=== PATIENT | female | born 1995 | race African-American/Black ===

== ENCOUNTER 2022-09-29 11:39 | Observation (INO) | payer MEDICAID ==
[~2022-09-29] VITALS: Ht 160 cm; Wt 87.5 kg
[2022-09-29] MEDS ORDERED: PREN1TAB78 MT (13:34)
== END 2022-09-29 17:15 | disposition home or self-care (01) ==
LOC: 8 EST LDRP 11:39
PROVIDERS: ADMIT Obstetrics & Gynecology; ATTEND Obstetrics & Gynecology
DX: O99.891 Other specified diseases and conditions complicating pregnancy (principal); M54.9 Dorsalgia, unspecified; R10.9 Unspecified abdominal pain; O62.9 Abnormality of forces of labor, unspecified; Z3A.38 38 weeks gestation of pregnancy
CPT/HCPCS: 59025; 76805; 76818; G0378; 99281; G0379

== ENCOUNTER 2022-10-04 09:47 | Inpatient (IN) | payer MEDICAID ==
[~2022-10-04] VITALS: Ht 160 cm; Wt 88.5 kg
[~2022-10-04 09:47] MED LIST: PREN1TAB78 MT
[2022-10-04] MEDS ORDERED: CARBOPROST TROMETHAMINE 250 MCG/ML AMPUL IM PRN (12:30)
[2022-10-04] MEDS ORDERED: OXYTOCIN 30 UNITS/500ML NS PMX 500 ML IV SCH (12:30)
[2022-10-04] MEDS ORDERED: BUTORPHANOL TARTRATE 2 MG/ML VIAL IV PRN (12:30)
[2022-10-04] MEDS ORDERED: METHYLERGONOVINE MALEATE 0.2 MG/ML IM PRN (12:30)
[2022-10-04] MEDS ORDERED: RHO(D) IMMUNE GLOBULIN 300 MCG/SYR IM NR (12:30)
[2022-10-04] MEDS ORDERED: LIDOCAINE HCL 1% 20ML VIAL (Pyxis) INJ INFIL SCH (12:30)
[2022-10-04] MEDS ORDERED: NALOXONE HCL 0.4 MG/ML 1ML VIAL IM PRN (12:30)
[2022-10-04] MEDS: LACTATED RINGERS 1,000 ML IV SCH ×4 (15:03→21:18)
[2022-10-04 15:10] LABS: CLARITY URINE CLEAR (CLEAR); COLOR URINE DARK YELLOW (YELLOW); KETONES URINE NEGATIVE (NEGATIVE); LEUKOCYTE ESTERASE URINE 2+ (NEGATIVE); NITRITE URINE NEGATIVE (NEGATIVE); OCCULT BLOOD URINE NEGATIVE (NEGATIVE); PROTEIN URINE TRACE (NEGATIVE); SPECIFIC GRAVITY URINE 1.021 (1.005-1.030)
[2022-10-04 15:30] LABS: *AMPHETAMINES SCREEN URINE NEGATIVE (NEGATIVE); *BARBITURATES SCREEN URINE NEGATIVE (NEGATIVE); *BENZODIAZEPINES SCREEN URINE NEGATIVE (NEGATIVE); *COCAINE SCREEN URINE NEGATIVE (NEGATIVE); CANNABINOID URINE SCREEN NEGATIVE (NEGATIVE); METHADONE URINE SCREEN NEGATIVE (NEGATIVE); OPIATES URINE SCREEN NEGATIVE (NEGATIVE); PHENCYCLIDINE URINE SCREEN NEGATIVE (NEGATIVE)
[2022-10-04 16:00] LABS: BASOPHILS % 0.2 % (0.0-2.0); EOSINOPHILS % 0.4 % (0.0-5.0); HEMATOCRIT. 27.1 % (36.0-48.0); HEMOGLOBIN. 8.4 g/dL (12.0-16.0); LYMPHOCYTES % 20.2 % (20.0-50.0); MEAN CORPUSCULAR HEMOGLOBIN 20.2 pg (28.0-32.0); MEAN CORPUSCULAR VOLUME 65.2 fL (81.0-99.0); MEAN PLATELET VOLUME 8.5 fl (7.4-10.4); MONOCYTES % 5.1 % (2.0-8.0); NEUTROPHILS % 74.1 % (40.0-76.0); PLATELET 398 x1000/uL (130-400); RED BLOOD CELL COUNT 4.15 mill/uL (4.2-5.4); RED CELL DISTRIBUTION WIDTH 19.6 % (11.6-14.6)
[2022-10-04 16:12] LABS: INR 0.9; PARTIAL THROMBOPLASTIN TIME 29.6 sec (23.4-31.0); PROTHROMBIN TIME 9.9 sec (9.6-11.0)
[2022-10-04 17:29] LABS: PLATELET ESTIMATE NORMAL
[2022-10-04 18:28] LABS: HEPATITIS B SURFACE ANTIGEN NEGATIVE
[2022-10-04] MEDS ORDERED: ROPIVACAINE HCL/PF EPIDURAL 200 ML EPI ONE (20:28)
[2022-10-04] MEDS ORDERED: ROPIVACAINE HCL/PF EPIDURAL 200 ML EPI SCH (20:30)
[2022-10-05] MEDS ORDERED: ONDANSETRON HCL 4MG/2ML INJ IV PRN (00:30)
[2022-10-05] MEDS: ONDANSETRON HCL 4MG/2ML INJ IV PRN ×2 (00:35→07:25)
[2022-10-05] MEDS ORDERED: HEMORRHOIDAL SUPP PR PRN (06:30)
[2022-10-05] MEDS ORDERED: LANOLIN OINT 7GM TUBE TOP PRN (06:30)
[2022-10-05] MEDS ORDERED: GLYCERIN/WITCH HAZEL LEAF MEDICATED PAD TOP PRN (06:30)
[2022-10-05] MEDS ORDERED: DIPHENHYDRAMINE 25MG CAPSULE PO PRN (06:30)
[2022-10-05] MEDS ORDERED: RHO(D) IMMUNE GLOBULIN 300 MCG/SYR IM PRN (06:30)
[2022-10-05] MEDS ORDERED: IBUPROFEN 400MG TABLET PO PRN (06:30)
[2022-10-05] MEDS ORDERED: BENZOCAINE/LANOLIN/ALOE VERA SPRAY TOP PRN (06:30)
[2022-10-05] MEDS ORDERED: METHYLERGONOVINE MALEATE 0.2 MG/ML IM PRN (06:30)
[2022-10-05] MEDS ORDERED: OXYTOCIN 30 UNITS/500ML NS PMX 500 ML IV SCH (06:30)
[2022-10-05] MEDS ORDERED: BISACODYL 10MG SUPP PR PRN (06:30)
[2022-10-05] MEDS ORDERED: PRENATAL VIT/FE FUMARATE/FA TABLET PO SCH (09:00)
[2022-10-05] MEDS: IBUPROFEN 800MG TABLET PO PRN ×2 (09:10→20:13)
[2022-10-05 09:30] VITALS: BP 113/70
[2022-10-05] MEDS ORDERED: NALOXONE HCL 0.4MG/ML VIAL IV PRN (10:00)
[2022-10-05] MEDS: ACETAMINOPHEN WITH CODEINE 300/30MG TABLET PO PRN ×2 (10:50→18:32)
[2022-10-05 16:00] VITALS: BP 115/72
[2022-10-05 19:30] VITALS: BP 113/62
[2022-10-05] MEDS: SIMETHICONE 80MG TABLET CHEW PO SCH (20:11)
[2022-10-06] MEDS: IBUPROFEN 800MG TABLET PO PRN ×3 (03:44→18:32)
[2022-10-06 04:00] VITALS: BP 104/57
[2022-10-06 06:30] LABS: BASOPHILS % 0.3 % (0.0-2.0); EOSINOPHILS % 0.9 % (0.0-5.0); LYMPHOCYTES % 18.6 % (20.0-50.0); MEAN CORPUSCULAR HEMOGLOBIN 19.8 pg (28.0-32.0); MEAN CORPUSCULAR VOLUME 64.7 fL (81.0-99.0); MEAN PLATELET VOLUME 8.2 fl (7.4-10.4); MONOCYTES % 8.2 % (2.0-8.0); PLATELET 307 x1000/uL (130-400); RED BLOOD CELL COUNT 2.66 mill/uL (4.2-5.4); RED CELL DISTRIBUTION WIDTH 19.2 % (11.6-14.6)
[2022-10-06 08:00] VITALS: BP 101/51
[2022-10-06 08:15] LABS: HEMATOCRIT. 17.2 % (36.0-48.0); HEMOGLOBIN. 5.2 g/dL (12.0-16.0)
[2022-10-06] MEDS: FERROUS SULFATE 325MG TABLET PO SCH ×3 (08:36→17:56)
[2022-10-06] MEDS: SIMETHICONE 80MG TABLET CHEW PO SCH ×4 (08:36→20:56)
[2022-10-06 16:00] VITALS: BP 117/62
[2022-10-06 19:30] VITALS: BP 107/61
[2022-10-07 04:00] VITALS: BP 94/54
[2022-10-07] MEDS ORDERED: IBUP-2030 PO (05:57)
[2022-10-07] MEDS ORDERED: FERR210T MT (05:57)
[2022-10-07] MEDS: IBUPROFEN 800MG TABLET PO PRN (07:19)
[2022-10-07 08:00] VITALS: BP 111/62
[2022-10-07 08:15] VITALS: BP 94/54
[2022-10-07] MEDS: ACETAMINOPHEN WITH CODEINE 300/30MG TABLET PO PRN (08:15)
[2022-10-07 09:26] LABS: BASOPHILS % 0.4 % (0.0-2.0); EOSINOPHILS % 1.1 % (0.0-5.0); MEAN CORPUSCULAR HEMOGLOBIN 19.9 pg (28.0-32.0); MEAN CORPUSCULAR VOLUME 66.2 fL (81.0-99.0); MEAN PLATELET VOLUME 7.7 fl (7.4-10.4); NEUTROPHILS % 71.5 % (40.0-76.0); PLATELET 392 x1000/uL (130-400); RED BLOOD CELL COUNT 3.08 mill/uL (4.2-5.4); RED CELL DISTRIBUTION WIDTH 19.7 % (11.6-14.6)
[2022-10-07 09:38] LABS: HEMATOCRIT. 20.4 % (36.0-48.0); HEMOGLOBIN. 6.1 g/dL (12.0-16.0)
== END 2022-10-07 11:00 | disposition home or self-care (01) | DRG 560 ==
LOC: 8 EST LDRP 09:47 → OBSVTOIN 09:47 → 8EST 10-05 09:44
PROVIDERS: ADMIT Obstetrics & Gynecology; ATTEND Obstetrics & Gynecology
PROC: 10E0XZZ Delivery of Products of Conception, External Approach (ICD-10-PCS; principal; 2022-10-05)
PROC: 0HQ9XZZ Repair Perineum Skin, External Approach (ICD-10-PCS; 2022-10-05)
PROC: 3E0R3BZ Introduction of Anesthetic Agent into Spinal Canal, Percutaneous Approach (ICD-10-PCS; 2022-10-05)
PROC: 00HU33Z Insertion of Infusion Device into Spinal Canal, Percutaneous Approach (ICD-10-PCS; 2022-10-05)
DX: O69.81X0 Labor and delivery complicated by cord around neck, without compression, not applicable or unspecified (principal); Z37.0 Single live birth; O72.1 Other immediate postpartum hemorrhage; O99.02 Anemia complicating childbirth; O70.0 First degree perineal laceration during delivery; Z3A.39 39 weeks gestation of pregnancy; Z20.822 Contact with and (suspected) exposure to COVID-19
CPT/HCPCS: 36415; 80305; 81003; 85025; 86592; 86703; 86762; 86850; 86900; 87340; 87426; 99281; G0378; J2210; J2405; J2795; J7120; A4315; J2590